=== PATIENT | female | born 1960 | race Caucasian/White ===

== ENCOUNTER 2018-07-04 15:52 | Emergency (ER) | payer OTHER, MEDICAID, SELFPAY ==
[2018-07-04 16:04] VITALS: BP 131/87; PULSE 105; RESP 18; TEMP 37.1; O2SAT 97
--- NOTE | 2018-07-04 16:35 | PC.NURSE ---
pt states i think people around me can control me.
--- NOTE | 2018-07-04 16:39 | ED.PSYCH ---
HPI - Psych General Chief Complaint: Psychiatric Symptoms Stated Complaint: Psychiatric help Time Seen by Provider: 07/04/18 16:21 Source: patient Mode of arrival: ambulatory Limitations: no limitations History of Present Illness HPI Narrative: Patient is a 58-year-old female with history of schizoaffective disorder, bipolar disorder. She has been hospitalized twice both at [facility] all recently. No medication adjustments have been made. Family brings her in today concerned because she seems not with it a little more paranoid than normal. She typically gets care in [place] with [facility]. received a phone call from them to her arrival concern they thought she needed to see patient and medication change. They understood that if she did not meet criteria she would not be inpatient. the patient states that she has been living with her family in [place] for the last few days. She is well dressed. She says that her mood has been labile but stable for the last 20 minutes therefore she does not think she needs admission criteria she does not want to stay in the mental health facility. She says she did not like [facility]. She denies any suicidal or homicidal thoughts. She states that she does hear voices she has all the time. They do not tell her to harm herself or others. MD complaint: altered mental status Related Data Home Medications Medication Instructions Recorded Confirmed divalproex 07/04/18 divalproex 07/04/18 hydroxyzine pamoate 50 mg PO TID 07/04/18 07/04/18 lorazepam 07/04/18 oxcarbazepine 07/04/18 quetiapine 300 mg PO BID 07/04/18 07/04/18 Allergies Allergy/AdvReac Type Severity Reaction Status Date / Time No Known Drug Allergies Allergy Verified 07/04/18 16:17 Review of Systems Review of Systems ROS Unobtainable: All systems reviewed & are unremarkable except as noted in HPI and below Constitutional Denies chills, Denies fever(s), Denies lethargy and Denies weakness Eyes Denies change in vision, Denies eye discharge, Denies irritation and Denies loss of vision ENT Ears, Nose, Mouth, and Throat: Denies change in voice, Denies neck pain and Denies sore throat Cardiovascular Denies chest pain, Denies irregular heart rhythm, Denies lightheadedness, Denies palpitations, Denies dyspnea, Denies dyspnea on exertion and Denies orthopnea Respiratory Denies cough, Denies dyspnea, Denies dyspnea on exertion and Denies wheezing Gastrointestinal Gastrointestinal: Denies abdominal pain, Denies change in bowel habits, Denies diarrhea, Denies nausea and Denies vomiting Genitourinary Denies hematuria, Denies flank pain, Denies urinary incontinence and Denies urinary urgency Musculoskeletal Denies neck pain Integumentary/Breasts Denies pruritus, Denies erythema, Denies rash and Denies wounds Neurologic Denies confusion, Denies loss of vision and Denies weakness Psychiatric Denies anxiety, Denies confusion, Denies depression, Reports auditory hallucinations, Denies visual hallucinations, Denies hallucinations, Denies tactile hallucinations, Denies homicidal ideation and Denies suicidal ideation Endocrine Denies palpitations Hematologic/Lymphatic Denies easy bruising Allergic/Immunologic Denies wheezing [facility] Medical History Schizoaffective disorder (Acute) Social History Smoking Status: Never smoker Social History Smoking Status: Never smoker Exam Initial Vital Signs Initial Vital Signs: Vital Signs Temperature 98.8 F 07/04/18 16:04 Pulse Rate 105 H 07/04/18 16:04 Respiratory Rate 18 07/04/18 16:04 Blood Pressure 131/87 07/04/18 16:04 Pulse Oximetry 97 07/04/18 16:04 GENERAL: Well-dressed well-appearing female good eye contact CARDIOVASCULAR: peripheral pulses in tact, cap refill <2 sec RESPIRATORY: No respiratory distress, speaks in full sentences without difficulty EXTREMITIES: Normal range of motion, no clubbing or edema. Neurovascularly intact NEUROLOGICAL: Cranial nerves II through XII grossly intact. Normal gait and speech. SKIN: Warm, dry, no petechiae, no rashes or lesions. Psych Appearance: grossly normal Mental Status: mental status grossly normal Speech and Movement: speech clear, speech not pressured and speech not slurred Mood: anxious mood, not expansive, not manic and not paranoid Affect: No sad, No hostile and irritable affect Attitude: cooperative Thought Process: normal, no flight of ideas, logical and not impoverished Thought Content: normal, no compulsions and no delusions Judgment: fair Course Orders Ordered: Discontinued Medications Lorazepam (Ativan) 1 mg PO NOW ONE Stop: 07/04/18 17:02 Last Admin: 07/04/18 17:10 Dose: 1 mg Vital Signs - 8 hr 07/04/18 16:04 07/04/18 17:37 Temperature 98.8 F Pulse Rate 105 H 85 Respiratory Rate 18 18 Blood Pressure 131/87 124/75 Pulse Oximetry 97 100 MDM - Psych MDM Narrative Medical decision making narrative: The patient is clinically sober, free from distracting injury, appears to have intact insight, judgment and reason. Does not meet criteria for involuntary hospitalization. Patient has the capacity to make decisions. The patient is not suicidal. I discussed with family. Mood swings have been swinging rapidly today currently she is stable. The goal is for her to get to [place] where her providers are. Requested medication to help with car ride. She is given a dose of Ativan which she willingly takes. She was refusing blood work stating that if she blood she was staying in the hospital which she was not willing to do. Discharge Plan Departure Patient Disposition: Home Clinical Impression: Chronic schizophrenia Discharge Date/Time: 07/04/18 17:37 Interventions: ED Discharge Assessment Last Done: 07/04/18 17:37 Instructions: DI for Schizoaffective Disorder Activity Restrictions/Additional Instructions: *You have been diagnosed with schizophrenia *What to do: At this time you do not meet inpatient criteria. However I strongly recommend she follow up with her providers in regards to your medication and medication adjustment *Continue to take medications as directed *Follow up with your primary care provider in 2-3 days *Return to ER if you should have worsening paranoia, suicidal ideation, or any new, worsening or concerning symptoms Prescriptions: No Action oxcarbazepine 150 mg tablet RF: 0 quetiapine 300 mg tablet 300 mg PO BID RF: 0 divalproex 250 mg tablet,delayed release (DR/EC) RF: 0 hydroxyzine pamoate 50 mg capsule 50 mg PO TID RF: 0 divalproex 500 mg tablet,delayed release (DR/EC) RF: 0 lorazepam 1 mg tablet RF: 0
[2018-07-04] MEDS: LORazepam 0.5 MG TABLET 1 MG PO (17:10)
[2018-07-04 17:37] VITALS: BP 124/75; PULSE 85; RESP 18; O2SAT 100
== END 2018-07-04 17:37 | disposition home or self-care (01) ==
PROVIDERS: Emergency Provider Emergency Medicine
DX: F20.9 Schizophrenia, unspecified (principal)
CPT/HCPCS: 99282; 99283